=== PATIENT | male | born 1965 | race Caucasian/White ===

== ENCOUNTER 2020-10-12 07:45 | Emergency (ER) | payer MEDICAID ==
[~2020-10-12] VITALS: Ht 172.7 cm; Wt 109.2 kg
[2020-10-12] MEDS ORDERED: normal saline 1000ML IV soln IVB ONE (10:20)
[2020-10-12] MEDS ORDERED: ondansetron/PF 4mg/2ml inj IV ONE (10:20)
[2020-10-12] MEDS ORDERED: fentaNYL/PF 50MCG/1 ML 2ML syringe IV ONE (10:20)
[2020-10-12] MEDS ORDERED: iohexol 350MG/ML 100ml bottle IV ONE (10:26)
[2020-10-12 10:56] VITALS: BP 155/94
[2020-10-12] MEDS ORDERED: HYDROcodone/acetaminophen 10/325mg tab PO ONE (11:15)
[2020-10-12] MEDS ORDERED: HYDR-3964 PO (12:02)
[2020-10-12] MEDS ORDERED: ONDA4TAB6 PO (12:02)
== END 2020-10-12 12:49 | disposition short-term general hospital (02) ==
LOC: ER 07:46
DX: S43.402A Unspecified sprain of left shoulder joint, initial encounter (principal); S20.222A Contusion of left back wall of thorax, initial encounter; R51.9 Headache, unspecified; M25.512 Pain in left shoulder; R06.02 Shortness of breath; Z88.0 Allergy status to penicillin; Z79.899 Other long term (current) drug therapy; W11.XXXA Fall on and from ladder, initial encounter; Y93.89 Activity, other specified; Y92.89 Other specified places as the place of occurrence of the external cause; Y99.8 Other external cause status
CPT/HCPCS: 29105; 71260; 73030; 74177; 96374; 96375; 99285; J2405; J3010; J7030; Q9967

== ENCOUNTER 2021-04-27 14:34 | Inpatient (IN) | payer MEDICAID ==
[~2021-04-27] VITALS: Ht 172.7 cm; Wt 125.0 kg
[~2021-04-27 14:34] MED LIST: ONDA4TAB6 PO
[2021-04-27] MEDS ORDERED: LISI20TA28 PO (15:00)
[2021-04-27 15:49] LABS: BASOPHILS % (AUTO) 0.3 % (0-1); EOSINOPHILS % (AUTO) 0.4 % (0-6); HEMATOCRIT 49.6 % (42.0-52.0); HEMOGLOBIN 16.9 g/dl (14.0-17.9); LYMPHOCYTES # (AUTO) 1.3 X10'3 (1.1-4.8); LYMPHOCYTES % (AUTO) 11.6 % (21-51); MEAN CORPUSCULAR HEMOGLOBIN 29.6 PG (27.0-31.0); MEAN CORPUSCULAR HGB CONC 34.1 g/dL (33.0-36.5); MEAN CORPUSCULAR VOLUME 86.8 FL (78-98); MEAN PLATELET VOLUME 9.6 FL (7.4-10.4); MONOCYTES % (AUTO) 8.7 % (2-12); NEUTROPHILS # (AUTO) 8.6 X10'3 (1.8-7.7); PLATELET COUNT 208 X10'3 (140-440); RED BLOOD COUNT 5.71 X10'6 (4.70-6.10); RED CELL DISTRIBUTION WIDTH 14.5 % (11.5-14.5); WHITE BLOOD COUNT 10.9 X10'3 (4.5-11.0)
[2021-04-27 16:05] LABS: ALANINE AMINOTRANSFERASE 41 U/L (12-78); ALBUMIN 3.2 G/DL (3.4-5.0); ALBUMIN/GLOBULIN RATIO 0.9 (1.1-1.5); ALKALINE PHOSPHATASE 45 IU/L (46-116); ANION GAP 13 (8-16); ASPARTATE AMINO TRANSFERASE 25 U/L (10-37); BILIRUBIN,TOTAL 0.9 MG/DL (0.1-1.0); BLOOD UREA NITROGEN 21 MG/DL (7-18); BUN/CREATININE RATIO 12.3 (5.4-32.0); CALCIUM 8.4 MG/DL (8.5-10.1); CHLORIDE 105 MMOL/L (99-107); CREATININE 1.71 MG/DL (0.60-1.10); GLUCOSE 114 MG/DL (70-104); POTASSIUM 4.1 MMOL/L (3.5-5.1); SODIUM 138 MMOL/L (135-145); TOTAL CARBON DIOXIDE 19.7 MMOL/L (24-32); TOTAL PROTEIN 6.9 G/DL (6.4-8.2); eGFR 42 ML/MIN
[2021-04-27 16:28] LABS: D-DIMER 0.95 MG/L FEU (0-0.50)
--- NOTE | 2021-04-27 16:34 | NUR ---
Per Poison Control, symptoms not consistant with double dose of lisinopril
[2021-04-27] MEDS ORDERED: iohexol 350MG/ML 100ml bottle IV ONE (16:45)
[2021-04-27] MEDS ORDERED: heparin 10,000 units/1 ML INJ IV ONE ×2 (17:10→17:20)
[2021-04-27] MEDS ORDERED: heparin 25,000 UNIT/250ml bag 250 ML IV SCH ×2 (17:10→21:10)
[2021-04-27] MEDS ORDERED: heparin 10,000 units/1 ML INJ IV PRN (17:20)
--- NOTE | 2021-04-27 18:10 | NUR ---
Back from CT.
--- NOTE | 2021-04-27 18:22 | NUR ---
Hold heparin gtt per Dr. Lozano.
--- NOTE | 2021-04-27 19:07 | NUR ---
Patient requesting pain medication for left shoulder pain, Dr. Lozano is aware and will put in orders.
[2021-04-27] MEDS ORDERED: morphine 2 MG/ML inj. syringe IV PRN ×3 (19:10→19:40)
[2021-04-27] MEDS ORDERED: mag hydrox/Alum hydrox/simeth 30ml oral suspension PO PRN (19:40)
[2021-04-27] MEDS ORDERED: bisacodyl 10mg suppository rectal RC PRN (19:40)
[2021-04-27] MEDS ORDERED: diphenhydrAMINE 25mg capsule PO PRN (19:40)
[2021-04-27] MEDS ORDERED: acetaminophen 650mg rectal suppository RC PRN (19:40)
[2021-04-27] MEDS ORDERED: ondansetron 4mg rapidly disintigrating tab PO PRN (19:40)
[2021-04-27] MEDS ORDERED: HYDROcodone/acetaminophen 10/325mg tab PO PRN (19:40)
[2021-04-27] MEDS ORDERED: diphenhydrAMINE 50 mg/ml inj IV PRN (19:40)
[2021-04-27] MEDS ORDERED: ondansetron/PF 4mg/2ml inj IV PRN (19:40)
[2021-04-27] MEDS ORDERED: HYDROcodone/acetaminophen 5mg/325mg tablet PO PRN (19:40)
[2021-04-27] MEDS ORDERED: magnesium hydroxide 30ml (MOM) UD suspension PO PRN (19:40)
[2021-04-27] MEDS ORDERED: normal saline 1000ml 1,000 ML IV SCH (19:40)
[2021-04-27] MEDS ORDERED: acetaminophen 325mg tablet PO PRN ×2 (19:40)
[2021-04-27] MEDS ORDERED: metoprolol tartrate 1mg/ml inj IV PRN (19:45)
[2021-04-27] MEDS ORDERED: aminophylline 250mg/10ml inj. IV PRN (19:45)
[2021-04-27] MEDS ORDERED: nitroGLYCERIN 0.4mg SUBLingual tab SL PRN (19:45)
[2021-04-27] MEDS ORDERED: regadenoson 0.4mg/5ml syringe IV ONE (19:45)
[2021-04-27] MEDS ORDERED: ringers solution, lacted 1,000 ML IV ONE (19:55)
[2021-04-27] MEDS: docusate sod 100mg capsule PO SCH (20:00)
[2021-04-27] MEDS ORDERED: PRAZ5CAP2 PO (20:23)
[2021-04-27] MEDS ORDERED: ASPI-1265 PO (20:23)
[2021-04-27] MEDS ORDERED: HYDR-3686 PO (20:23)
[2021-04-27] MEDS ORDERED: ATOR20TA66 PO (20:23)
[2021-04-27] MEDS ORDERED: IBUP-1986 PO (20:23)
[2021-04-27 20:27] LABS: CREATINE KINASE 245 U/L (39-308); LIPASE 291 U/L (73-393)
[2021-04-27 20:44] LABS: CLARITY,URINE CLEAR (Clear); COLOR,URINE YELLOW (Yellow); UA COLLECTION TYPE VOIDED
[2021-04-27 20:45] LABS: GLUCOSE, URINE NEGATIVE (Neg); KETONES,URINE NEGATIVE (Neg); OCCULT BLOOD,URINE NEGATIVE (Neg); PROTEIN,URINE TRACE mg/dl (Neg)
[2021-04-27 20:46] LABS: LEUKOCYTE ESTERASE ,URINE NEGATIVE (Neg); NITRITES, URINE NEGATIVE (Neg); UROBILINOGEN,URINE 0.2 E.U/dL (0.2-1.0)
[2021-04-27 20:51] LABS: HYALINE CASTS 0-3 /LPF (NEGATIVE)
[2021-04-27 20:52] LABS: MUCUS STRANDS FEW /LPF (Neg); SQUAMOUS EPITHELIAL CELL,UR FEW /LPF (FEW)
[2021-04-27 20:53] LABS: BACTERIA,URINE FEW /HPF (Neg)
[2021-04-27 20:54] LABS: FINE GRANULAR CAST 0-3 /LPF (NEGATIVE); STARCH,URINE FEW /HPF (NEGATIVE); WBC CLUMPS,URINE FEW /HPF (NEGATIVE)
[2021-04-27] MEDS ORDERED: temazepam 15mg capsule PO PRN (21:00)
[2021-04-27] MEDS ORDERED: hydrOXYzine 25 MG tablet PO PRN (21:05)
[2021-04-27 21:43] LABS: MAGNESIUM 2.1 MG/DL (1.5-2.4); PHOSPHORUS 4.4 MG/DL (2.3-4.5)
[2021-04-27 21:55] LABS: BASOPHILS % (AUTO) 0.3 % (0-1); EOSINOPHILS # (AUTO) 0.1 X10'3 (0-0.9); EOSINOPHILS % (AUTO) 0.8 % (0-6); HEMATOCRIT 47.1 % (42.0-52.0); HEMOGLOBIN 15.9 g/dl (14.0-17.9); LYMPHOCYTES # (AUTO) 1.7 X10'3 (1.1-4.8); LYMPHOCYTES % (AUTO) 17.9 % (21-51); MEAN CORPUSCULAR HEMOGLOBIN 29.3 PG (27.0-31.0); MEAN CORPUSCULAR HGB CONC 33.7 g/dL (33.0-36.5); MEAN CORPUSCULAR VOLUME 87.1 FL (78-98); MEAN PLATELET VOLUME 9.5 FL (7.4-10.4); MONOCYTES # (AUTO) 0.8 X10'3 (0-0.9); MONOCYTES % (AUTO) 8.8 % (2-12); NEUTROPHILS # (AUTO) 6.7 X10'3 (1.8-7.7); NEUTROPHILS % (AUTO) 72.2 % (42-75); PLATELET COUNT 170 X10'3 (140-440); RED BLOOD COUNT 5.41 X10'6 (4.70-6.10); RED CELL DISTRIBUTION WIDTH 14.6 % (11.5-14.5); WHITE BLOOD COUNT 9.3 X10'3 (4.5-11.0)
--- NOTE | 2021-04-27 21:57 | NUR ---
Report given to DARY Vidal in PCU.
[2021-04-27 22:00] VITALS: BP 134/92
[2021-04-27] MEDS: heparin 10,000 units/1 ML INJ IV PRN (23:18)
--- NOTE | 2021-04-28 02:45 | NUR ---
Delay in lab collection. 2 RN attempt to draw blood and no luck at this time. Lab notified.
[2021-04-28 03:07] LABS: BASOPHILS % (AUTO) 0.6 % (0-1); EOSINOPHILS # (AUTO) 0.1 X10'3 (0-0.9); EOSINOPHILS % (AUTO) 1.1 % (0-6); HEMATOCRIT 46.4 % (42.0-52.0); HEMOGLOBIN 15.8 g/dl (14.0-17.9); LYMPHOCYTES % (AUTO) 22.3 % (21-51); MEAN CORPUSCULAR HEMOGLOBIN 29.3 PG (27.0-31.0); MEAN CORPUSCULAR VOLUME 86.2 FL (78-98); MEAN PLATELET VOLUME 9.2 FL (7.4-10.4); MONOCYTES # (AUTO) 0.8 X10'3 (0-0.9); MONOCYTES % (AUTO) 9.5 % (2-12); NEUTROPHILS # (AUTO) 5.9 X10'3 (1.8-7.7); NEUTROPHILS % (AUTO) 66.5 % (42-75); PLATELET COUNT 170 X10'3 (140-440); RED BLOOD COUNT 5.38 X10'6 (4.70-6.10); RED CELL DISTRIBUTION WIDTH 14.4 % (11.5-14.5); WHITE BLOOD COUNT 8.8 X10'3 (4.5-11.0)
--- NOTE | 2021-04-28 03:19 | NUR ---
04/27/21 8690- Report received from Francisco in ED. Patient in bed resting upon entering room. No signs of distress noted at this time. 2 RN skin check performed with charge nurse, Beti. Sling noted to left upper extremity. Patient C/O slight pain to upper extremity. Pain medication administered per order. Skin intact with overall redness in color noted. Patient oriented to call light and surroundings. Call light and personal belongings placed within reach. Instructed to call for assistance. Assessment documented in interventions. Will continue to monitor.
[2021-04-28 03:29] LABS: ALANINE AMINOTRANSFERASE 39 U/L (12-78); ALBUMIN/GLOBULIN RATIO 0.9 (1.1-1.5); ALKALINE PHOSPHATASE 43 IU/L (46-116); ANION GAP 6 (8-16); ASPARTATE AMINO TRANSFERASE 20 U/L (10-37); BILIRUBIN,TOTAL 0.7 MG/DL (0.1-1.0); BLOOD UREA NITROGEN 17 MG/DL (7-18); BUN/CREATININE RATIO 14.3 (5.4-32.0); CALCIUM 8.2 MG/DL (8.5-10.1); CHLORIDE 108 MMOL/L (99-107); CREATININE 1.19 MG/DL (0.60-1.10); GLUCOSE 97 MG/DL (70-104); SODIUM 138 MMOL/L (135-145); TOTAL CARBON DIOXIDE 23.6 MMOL/L (24-32); TOTAL PROTEIN 6.5 G/DL (6.4-8.2); eGFR 63 ML/MIN
[2021-04-28 03:32] LABS: CHOL/HDL RATIO 5.3 (0.00-4.99); CHOLESTEROL 153 MG/DL (0-200); HDL CHOLESTEROL 29 MG/DL (35-60); LDL CHOLESTEROL 113 MG/DL (50-100); TRIGLYCERIDES 243 MG/DL (20-135)
--- NOTE | 2021-04-28 06:41 | NUR ---
Patient in room PCU 3023. I have received report from DARY Vidal and had the opportunity to ask questions and assume patient care.
[2021-04-28 07:00] VITALS: BP 134/79
[2021-04-28] MEDS ORDERED: pantoprazole 40mg Tablet.DR PO SCH (07:30)
[2021-04-28] MEDS ORDERED: nitroGLYCERIN 0.1mg/hour patch TD SCH (08:00)
[2021-04-28] MEDS ORDERED: metoprolol tartrate 25mg tablet PO SCH (08:00)
[2021-04-28] MEDS ORDERED: atorvastatin 20mg tablet PO SCH (08:00)
[2021-04-28] MEDS ORDERED: aspirin 81mg, enteric-coated 1 TAB TABLET.DR PO SCH (08:00)
[2021-04-28] MEDS: docusate sod 100mg capsule PO SCH (08:00)
[2021-04-28] MEDS: heparin 10,000 units/1 ML INJ IV PRN (08:03)
[2021-04-28] MEDS ORDERED: APIX5TAB3 PO (09:35)
[2021-04-28] MEDS ORDERED: LOP25T PO (09:35)
[2021-04-28 11:00] VITALS: BP 149/86
--- NOTE | 2021-04-28 12:00 | NUR ---
Patient stable for discharge per md orders. All instructions were given, all questions answered appropriately. All belongings including home CPAP machine was collected and sent with pt. Informed pt to follow up with senior systems software engineer and pcp within one week. Explained the importance of taking medications, including new medications that was escript to [facility] on [address]. Discontinued PIV, cannula intact. Discontinued tele, telephonic nurse notified. Wheeled pt to lobby and assisted into vehicle with .
== END 2021-04-28 11:59 | disposition home or self-care (01) | DRG 201 ==
LOC: ER 14:34 → ED HOLD 19:43 → PCU 3S 22:15
PROVIDERS: ADMIT Family Medicine; ATTEND Family Medicine
PROC: B32T1ZZ Computerized Tomography (CT Scan) of Left Pulmonary Artery using Low Osmolar Contrast (ICD-10-PCS; principal; 2021-04-27)
PROC: B3201ZZ Computerized Tomography (CT Scan) of Thoracic Aorta using Low Osmolar Contrast (ICD-10-PCS; 2021-04-27)
PROC: B32S1ZZ Computerized Tomography (CT Scan) of Right Pulmonary Artery using Low Osmolar Contrast (ICD-10-PCS; 2021-04-27)
DX: I48.91 Unspecified atrial fibrillation (principal); I21.A1 Myocardial infarction type 2; I50.33 Acute on chronic diastolic (congestive) heart failure; E87.2 Acidosis; N17.9 Acute kidney failure, unspecified; I11.0 Hypertensive heart disease with heart failure; I95.9 Hypotension, unspecified; E86.1 Hypovolemia; Z20.822 Contact with and (suspected) exposure to COVID-19; E66.01 Morbid (severe) obesity due to excess calories; E78.00 Pure hypercholesterolemia, unspecified; E78.5 Hyperlipidemia, unspecified; G47.33 Obstructive sleep apnea (adult) (pediatric); J45.909 Unspecified asthma, uncomplicated; Z68.41 Body mass index [BMI] 40.0-44.9, adult; Z88.0 Allergy status to penicillin; Z79.899 Other long term (current) drug therapy
CPT/HCPCS: 36415; 71045; 71275; 80053; 80061; 81001; 82550; 83036; 83690; 83735; 83880; 84100; 84443; 84484; 85025; 85379; 85610; 85730; 87081; 87088; 87635; 93005; 93306; 96374; 96375; 99285; C9803; G0378; J1644; J2270; J7030; J7120; Q9967

== ENCOUNTER 2022-01-17 01:32 | Inpatient (IN) | payer MEDICAID ==
[~2022-01-17] VITALS: Ht 172.7 cm; Wt 125.0 kg
[~2022-01-17 01:32] MED LIST changes: +APIX5TAB3 PO; +ASPI-1265 PO; +ATOR20TA66 PO; +HYDR-3686 PO; +LISI20TA28 PO; +LOP25T PO; -ONDA4TAB6 PO; +PRAZ5CAP2 PO
[2022-01-17] MEDS ORDERED: normal saline 1000ML IV soln IV ONE (02:30)
[2022-01-17 02:47] LABS: BASOPHILS % (AUTO) 0.3 % (0-1); EOSINOPHILS % (AUTO) 0.2 % (0-6); HEMATOCRIT 46.5 % (42.0-52.0); HEMOGLOBIN 15.8 g/dl (14.0-17.9); LYMPHOCYTES # (AUTO) 1.3 X10'3 (1.1-4.8); MEAN CORPUSCULAR HEMOGLOBIN 29.5 PG (27.0-31.0); MEAN CORPUSCULAR HGB CONC 33.9 g/dL (33.0-36.5); MEAN CORPUSCULAR VOLUME 86.8 FL (78-98); MEAN PLATELET VOLUME 10.1 FL (7.4-10.4); MONOCYTES # (AUTO) 0.8 X10'3 (0-0.9); MONOCYTES % (AUTO) 7.7 % (2-12); NEUTROPHILS # (AUTO) 8.7 X10'3 (1.8-7.7); NEUTROPHILS % (AUTO) 79.8 % (42-75); PLATELET COUNT 161 X10'3 (140-440); RED BLOOD COUNT 5.36 X10'6 (4.70-6.10); RED CELL DISTRIBUTION WIDTH 13.3 % (11.5-14.5); WHITE BLOOD COUNT 10.9 X10'3 (4.5-11.0)
[2022-01-17 02:52] LABS: D-DIMER 0.21 MG/L FEU (0-0.50)
[2022-01-17] MEDS ORDERED: normal saline 1000ml 1,000 ML IV SCH (03:05)
[2022-01-17 03:51] LABS: ALANINE AMINOTRANSFERASE 46 U/L (12-78); ALBUMIN 3.9 G/DL (3.4-5.0); ALKALINE PHOSPHATASE 54 IU/L (46-116); ANION GAP 10 (8-16); ASPARTATE AMINO TRANSFERASE 25 U/L (10-37); BILIRUBIN,TOTAL 1.6 MG/DL (0.1-1.0); BLOOD UREA NITROGEN 30 MG/DL (7-18); BUN/CREATININE RATIO 14.3 (5.4-32.0); CALCIUM 9.3 MG/DL (8.5-10.1); CHLORIDE 103 MMOL/L (99-107); GLUCOSE 147 MG/DL (70-104); POTASSIUM 4.4 MMOL/L (3.5-5.1); SODIUM 135 MMOL/L (135-145); TOTAL CARBON DIOXIDE 22.1 MMOL/L (24-32); TOTAL PROTEIN 7.7 G/DL (6.4-8.2); eGFR 33 ML/MIN
[2022-01-17 03:55] LABS: MAGNESIUM 2.3 MG/DL (1.5-2.4)
[2022-01-17] MEDS ORDERED: normal saline 1000ml 1,000 ML IV ONE (04:20)
[2022-01-17] MEDS ORDERED: bisacodyl 10mg suppository rectal RC PRN (05:00)
[2022-01-17] MEDS ORDERED: morphine 2 MG/ML inj. syringe IV PRN ×2 (05:00)
[2022-01-17] MEDS ORDERED: ondansetron 4mg rapidly disintigrating tab PO PRN (05:00)
[2022-01-17] MEDS ORDERED: HYDROmorphone inj. 0.5 MG/0.5 ML DISP.SYRIN IV PRN (05:00)
[2022-01-17] MEDS ORDERED: acetaminophen 325mg tablet PO PRN (05:00)
[2022-01-17] MEDS ORDERED: mag hydrox/Alum hydrox/simeth 30ml oral suspension PO PRN (05:00)
[2022-01-17] MEDS ORDERED: acetaminophen 650mg rectal suppository RC PRN (05:00)
[2022-01-17] MEDS ORDERED: diphenhydrAMINE 25mg capsule PO PRN (05:00)
[2022-01-17] MEDS ORDERED: diphenhydrAMINE 50 mg/ml inj IV PRN (05:00)
[2022-01-17] MEDS ORDERED: ondansetron/PF 4mg/2ml inj IV PRN (05:00)
[2022-01-17] MEDS ORDERED: HYDROcodone/acetaminophen 10/325mg tab PO PRN (05:00)
[2022-01-17] MEDS ORDERED: magnesium hydroxide 30ml (MOM) UD suspension PO PRN (05:00)
[2022-01-17] MEDS ORDERED: HYDROcodone/acetaminophen 5mg/325mg tablet PO PRN (05:00)
[2022-01-17 05:15] LABS: CLARITY,URINE CLEAR (Clear); COLOR,URINE YELLOW (Yellow); GLUCOSE, URINE NEGATIVE (Neg); KETONES,URINE NEGATIVE (Neg); LEUKOCYTE ESTERASE ,URINE NEGATIVE (Neg); NITRITES, URINE NEGATIVE (Neg); OCCULT BLOOD,URINE NEGATIVE (Neg); PH,URINE 6.5 (4.8-8.0); PROTEIN,URINE 30 mg/dl (Neg); UROBILINOGEN,URINE 0.2 E.U/dL (0.2-1.0)
[2022-01-17 05:22] LABS: UA COLLECTION TYPE URINAL
[2022-01-17 05:24] LABS: BACTERIA,URINE FEW /HPF (Neg); HYALINE CASTS 0-3 /LPF (NEGATIVE); RBC,URINE 0-2 /HPF (0-2); SQUAMOUS EPITHELIAL CELL,UR FEW /LPF (FEW); WBC,URINE 0-4 /HPF (0-4)
[2022-01-17] MEDS ORDERED: DOPamine 400mg/D5W 250ml 250 ML IV PRN (05:25)
[2022-01-17] MEDS ORDERED: HYDR50TA65 PO (05:30)
[2022-01-17] MEDS ORDERED: HYDR-3686 PO (05:30)
[2022-01-17] MEDS ORDERED: METO25TA6 PO (05:44)
[2022-01-17] MEDS: DOPamine 400mg/D5W 250ml 250 ML IV SCH (06:52)
[2022-01-17] MEDS: normal saline 1000ml 1,000 ML IV SCH ×2 (06:53→16:30)
[2022-01-17] MEDS: docusate sod 100mg capsule PO SCH ×2 (08:00→19:53)
[2022-01-17 08:41] LABS: CREATINE KINASE 124 U/L (39-308); LIPASE 174 U/L (73-393); PHOSPHORUS 3.9 MG/DL (2.3-4.5)
[2022-01-17] MEDS: aspirin 81mg tab.chew PO SCH (09:20)
[2022-01-17] MEDS: pantoprazole 40mg Tablet.DR PO SCH (09:20)
[2022-01-17 09:21] LABS: HEMOGLOBIN A1C 5.6 % (4.5-6.2)
[2022-01-17] MEDS: heparin, porcine 5000 units/ml vial SQ SCH ×2 (09:21→16:00)
--- NOTE | 2022-01-17 11:45 | NUR ---
DR. CHENG AT BEDSIDE. VERBAL ORDER FOR BLADDER SCAN.
--- NOTE | 2022-01-17 12:48 | NUR ---
LUNCH TRAY PROVIDED.
--- NOTE | 2022-01-17 12:59 | NUR ---
RT AT BEDSIDE.
[2022-01-17 16:14] LABS: URINE AMPHETAMINE SCREEN POSITIVE (Neg); URINE BARBITUATE SCREEN NEGATIVE (Neg); URINE BENZODIAZEPINES SCREEN NEGATIVE (Neg); URINE CANNABINOID SCREEN NEGATIVE (Neg); URINE COCAINE SCREEN POSITIVE (Neg); URINE METHADONE SCREEN NEGATIVE (Neg); URINE OPIATE SCREEN NEGATIVE (Neg); URINE PHENCYCLIDINE SCREEN NEGATIVE (Neg)
[2022-01-17] MEDS ORDERED: temazepam 15mg capsule PO PRN (21:00)
[2022-01-17] MEDS ORDERED: nitroGLYCERIN 0.4mg SUBLingual tab SL PRN (23:15)
[2022-01-17] MEDS ORDERED: metoprolol tartrate 1mg/ml inj IV PRN (23:15)
[2022-01-17] MEDS ORDERED: regadenoson 0.4mg/5ml syringe IV PRN (23:15)
[2022-01-17] MEDS ORDERED: aminophylline 250mg/10ml inj. IV PRN (23:15)
[2022-01-18] VITALS (9 sets, daily range): BP systolic 115–139; BP diastolic 68–79
[2022-01-18] MEDS: normal saline 1000ml 1,000 ML IV SCH ×2 (00:05→11:00)
[2022-01-18] MEDS: heparin, porcine 5000 units/ml vial SQ SCH ×2 (00:05→10:54)
[2022-01-18] MEDS: DOPamine 400mg/D5W 250ml 250 ML IV SCH (06:00)
[2022-01-18 07:38] LABS: BASOPHILS % (AUTO) 0.4 % (0-1); EOSINOPHILS # (AUTO) 0.1 X10'3 (0-0.9); EOSINOPHILS % (AUTO) 1.6 % (0-6); HEMATOCRIT 47.4 % (42.0-52.0); HEMOGLOBIN 15.9 g/dl (14.0-17.9); LYMPHOCYTES # (AUTO) 1.8 X10'3 (1.1-4.8); LYMPHOCYTES % (AUTO) 25.4 % (21-51); MEAN CORPUSCULAR HEMOGLOBIN 29.5 PG (27.0-31.0); MEAN CORPUSCULAR HGB CONC 33.6 g/dL (33.0-36.5); MEAN CORPUSCULAR VOLUME 87.8 FL (78-98); MEAN PLATELET VOLUME 9.5 FL (7.4-10.4); MONOCYTES # (AUTO) 0.6 X10'3 (0-0.9); MONOCYTES % (AUTO) 8.6 % (2-12); NEUTROPHILS # (AUTO) 4.6 X10'3 (1.8-7.7); PLATELET COUNT 143 X10'3 (140-440); RED CELL DISTRIBUTION WIDTH 13.2 % (11.5-14.5); WHITE BLOOD COUNT 7.2 X10'3 (4.5-11.0)
[2022-01-18 07:57] LABS: ALANINE AMINOTRANSFERASE 35 U/L (12-78); ALBUMIN 3.2 G/DL (3.4-5.0); ALBUMIN/GLOBULIN RATIO 0.9 (1.1-1.5); ALKALINE PHOSPHATASE 43 IU/L (46-116); ANION GAP 8 (8-16); ASPARTATE AMINO TRANSFERASE 20 U/L (10-37); BILIRUBIN,TOTAL 0.7 MG/DL (0.1-1.0); BLOOD UREA NITROGEN 17 MG/DL (7-18); BUN/CREATININE RATIO 16.3 (5.4-32.0); CALCIUM 8.6 MG/DL (8.5-10.1); CHLORIDE 110 MMOL/L (99-107); CHOL/HDL RATIO 3.6 (0.00-4.99); CHOLESTEROL 134 MG/DL (0-200); CREATININE 1.04 MG/DL (0.60-1.10); GLUCOSE 82 MG/DL (70-104); HDL CHOLESTEROL 37 MG/DL (35-60); LDL CHOLESTEROL 67 MG/DL (50-100); POTASSIUM 4.4 MMOL/L (3.5-5.1); SODIUM 142 MMOL/L (135-145); TOTAL CARBON DIOXIDE 23.6 MMOL/L (24-32); TOTAL PROTEIN 6.6 G/DL (6.4-8.2); TRIGLYCERIDES 208 MG/DL (20-135); eGFR 74 ML/MIN
[2022-01-18] MEDS: docusate sod 100mg capsule PO SCH (08:00)
--- NOTE | 2022-01-18 08:00 | NUR ---
pt to tiago scan for stress test.
[2022-01-18] MEDS: aspirin 81mg tab.chew PO SCH (10:53)
[2022-01-18] MEDS: pantoprazole 40mg Tablet.DR PO SCH (10:53)
[2022-01-18] MEDS ORDERED: PRAZ5CAP2 PO (13:11)
[2022-01-18] MEDS ORDERED: PANT40TA54 PO (13:11)
[2022-01-18] MEDS ORDERED: LISI20TA28 PO (13:11)
== END 2022-01-18 14:08 | disposition home or self-care (01) | DRG 422 ==
LOC: ER 01:32 → ED HOLD 05:02
PROVIDERS: ADMIT Family Medicine; ATTEND Family Medicine
PROC: 4A02XM4 Measurement of Cardiac Total Activity, External Approach (ICD-10-PCS; principal; 2022-01-17)
PROC: 3E033HZ Introduction of Radioactive Substance into Peripheral Vein, Percutaneous Approach (ICD-10-PCS; 2022-01-17)
DX: E86.0 Dehydration (principal); E86.1 Hypovolemia; N17.9 Acute kidney failure, unspecified; I11.0 Hypertensive heart disease with heart failure; I50.32 Chronic diastolic (congestive) heart failure; I95.9 Hypotension, unspecified; G47.33 Obstructive sleep apnea (adult) (pediatric); E66.01 Morbid (severe) obesity due to excess calories; E78.00 Pure hypercholesterolemia, unspecified; I48.91 Unspecified atrial fibrillation; Z20.822 Contact with and (suspected) exposure to COVID-19; N40.0 Benign prostatic hyperplasia without lower urinary tract symptoms; J45.909 Unspecified asthma, uncomplicated; I25.10 Atherosclerotic heart disease of native coronary artery without angina pectoris; I25.2 Old myocardial infarction; Z68.41 Body mass index [BMI] 40.0-44.9, adult; Z88.0 Allergy status to penicillin; Z79.899 Other long term (current) drug therapy
CPT/HCPCS: 36415; 70450; 71045; 78452; 80053; 80061; 80305; 81001; 82550; 83036; 83605; 83690; 83735; 83880; 84100; 84145; 84484; 85025; 85379; 87040; 92508; 92616; 93005; 93017; 93306; 94760; 99285; A9500; G0378; J1265; J1644; J2785; J7030; J7040

== ENCOUNTER 2023-02-16 09:43 | Emergency (ER) | payer MEDICAID ==
[~2023-02-16] VITALS: Ht 172.7 cm; Wt 125.0 kg
[~2023-02-16 09:43] MED LIST changes: -APIX5TAB3 PO; -ATOR20TA66 PO; -HYDR-3686 PO; +HYDR50TA65 PO; -LOP25T PO; +METO25TA6 PO; +PANT40TA54 PO
[2023-02-16 09:53] VITALS: TEMP 98
[2023-02-16 10:55] LABS: BILIRUBIN,URINE NEGATIVE (Neg); CLARITY,URINE CLEAR (Clear); COLOR,URINE YELLOW (Yellow); GLUCOSE, URINE NEGATIVE (Neg); KETONES,URINE NEGATIVE (Neg); LEUKOCYTE ESTERASE ,URINE NEGATIVE (Neg); NITRITES, URINE NEGATIVE (Neg); OCCULT BLOOD,URINE NEGATIVE (Neg); PH,URINE 5.5 (4.8-8.0); PROTEIN,URINE NEGATIVE (Neg); UROBILINOGEN,URINE 0.2 E.U/dL (0.2-1.0)
[2023-02-16 10:57] LABS: BASOPHILS % (AUTO) 0.2 % (0-1); EOSINOPHILS # (AUTO) 0.1 X10'3 (0-0.9); EOSINOPHILS % (AUTO) 0.9 % (0-6); HEMATOCRIT 45.6 % (42.0-52.0); HEMOGLOBIN 15.6 g/dl (14.0-17.9); LYMPHOCYTES # (AUTO) 1.6 X10'3 (1.1-4.8); LYMPHOCYTES % (AUTO) 21.2 % (21-51); MEAN CORPUSCULAR HEMOGLOBIN 30.1 PG (27.0-31.0); MEAN CORPUSCULAR HGB CONC 34.3 g/dL (33.0-36.5); MEAN CORPUSCULAR VOLUME 87.7 FL (78-98); MEAN PLATELET VOLUME 10.6 FL (7.4-10.4); MONOCYTES # (AUTO) 0.7 X10'3 (0-0.9); MONOCYTES % (AUTO) 8.8 % (2-12); NEUTROPHILS # (AUTO) 5.3 X10'3 (1.8-7.7); NEUTROPHILS % (AUTO) 68.9 % (42-75); PLATELET COUNT 135 X10'3 (140-440); RED BLOOD COUNT 5.19 X10'6 (4.70-6.10); RED CELL DISTRIBUTION WIDTH 13.2 % (11.5-14.5); WHITE BLOOD COUNT 7.6 X10'3 (4.5-11.0)
[2023-02-16 10:59] LABS: UA COLLECTION TYPE CLN CATCH MIDSTREAM
[2023-02-16 11:17] LABS: LIPASE 170 U/L (73-393)
[2023-02-16 11:23] LABS: ALANINE AMINOTRANSFERASE 49 U/L (12-78); ALBUMIN 3.9 G/DL (3.4-5.0); ALBUMIN/GLOBULIN RATIO 1.1 (1.1-1.5); ALKALINE PHOSPHATASE 49 IU/L (46-116); ANION GAP 5 (8-16); ASPARTATE AMINO TRANSFERASE 30 U/L (10-37); BILIRUBIN,TOTAL 0.6 MG/DL (0.1-1.0); BLOOD UREA NITROGEN 16 MG/DL (7-18); BUN/CREATININE RATIO 14.5 (10.0-20.0); CALCIUM 9.1 MG/DL (8.5-10.1); CHLORIDE 106 MMOL/L (99-107); GLUCOSE 105 MG/DL (70-104); POTASSIUM 4.3 MMOL/L (3.5-5.1); SODIUM 138 MMOL/L (135-145); TOTAL CARBON DIOXIDE 26.8 MMOL/L (24-32); TOTAL PROTEIN 7.4 G/DL (6.4-8.2); eCRCL 71 ML/MIN; eGFR 69 ML/MIN
[2023-02-16] MEDS ORDERED: IBUP-1984 PO (17:04)
[2023-02-16] MEDS ORDERED: PRED20TA PO (17:04)
[2023-02-16] MEDS ORDERED: CYCL-1 PO (17:04)
[2023-02-16] MEDS ORDERED: cyclobenzaprine 10mg tablet PO ONE (17:05)
[2023-02-16] MEDS ORDERED: ketorolac trometh. 30mg/ml inj. IM ONE (17:05)
[2023-02-16 18:24] VITALS: BP 155/89; PULSE 79; RESP 15; O2SAT 97
== END 2023-02-16 18:05 | disposition home or self-care (01) ==
LOC: ER 09:43
DX: M62.830 Muscle spasm of back (principal); M79.605 Pain in left leg; M54.6 Pain in thoracic spine; I48.91 Unspecified atrial fibrillation; E78.00 Pure hypercholesterolemia, unspecified; I10 Essential (primary) hypertension; J45.909 Unspecified asthma, uncomplicated; G47.30 Sleep apnea, unspecified; Z72.89 Other problems related to lifestyle; Z88.0 Allergy status to penicillin; Z79.82 Long term (current) use of aspirin; Z79.899 Other long term (current) drug therapy
CPT/HCPCS: 80053; 81003; 83690; 85025; 96372; 99283; J1885